=== PATIENT | female | born 1960 | race American Indian/Alaskan Native ===

== ENCOUNTER 2016-10-07 20:57 | Emergency (ER) | payer MEDICAID ==
--- NOTE | 2016-10-07 22:24 | XRay Report ---
FINAL REPORT EXAM: XR SHOULDER 2 RT HISTORY: shoulder Pain TECHNIQUE: Right shoulder three views 4 images PRIORS: None. FINDINGS: Visualized portion of the right lung appears clear. Bone mineralization appears within normal limits. No acute fracture or subluxation is identified. No gross abnormality is seen in the visualized soft tissues. IMPRESSION: 1. No acute osseous abnormality is identified.
[2016-10-07] MEDS ORDERED: NORCO 5/325 PO ONE (22:59)
[2016-10-07] MEDS ORDERED: FLEXERIL PO ONE (22:59)
--- NOTE | 2016-10-07 23:00 | Emergency Department Report ---
Upper Extremity - HPI Chief Complaint: Extremity Injury, Upper Stated Complaint: SHOULDER/ARM PAIN Time Seen by Provider: 10/07/16 22:40 Upper Extremity: Right Shoulder (Pain x 1 day) Occurred When: 1 Day Mechanism: Other (Lifting heavy object) Severity: mild (4/10) Symptoms: Yes Pain with Movement (Rt shoulder), Yes Limited Range of Movement ( per patient), No Deformity, No Numbness, No Weakness, No Swelling, No Bruising/ Ecchymosis, No Laceration or Abrasion Other History: Patient here complaining of pain to left shoulder after lifting heavt objects yesterday. Pain 4/10 and aching. Denies any other symptoms. Patient with H/O RA and follows by PCP. Denies trauma. ED Review of Systems ROS: Stated complaint: SHOULDER/ARM PAIN Other details as noted in HPI Comment: All other systems reviewed and negative Constitutional: denies: chills, fever Eyes: denies: eye pain, vision change ENT: denies: ear pain, throat pain, congestion Respiratory: no symptoms reported Cardiovascular: denies: chest pain, palpitations, edema, syncope Gastrointestinal: denies: abdominal pain, nausea Genitourinary: as per HPI Musculoskeletal: arthralgia. denies: back pain, joint swelling, myalgia Skin: denies: rash Neurological: denies: headache, weakness, numbness, paresthesias, confusion ED Past Medical Hx - Past Medical History Previous Medical History?: Yes Hx Hypertension: Yes - Surgical History Past Surgical History?: Yes Additional Surgical History: tonsillectomy - Family History Family history: hypertension - Social History Smoking Status: Current Every Day Smoker Substance Use Type: None - Medications Home Medications: Home Medications Medication Instructions Recorded Confirmed Last Taken Type Cyclobenzaprine [Flexeril] 10 mg PO TID PRN #12 tablet 10/08/16 Unknown Rx Ibuprofen [Motrin] 600 mg PO Q8H PRN #12 tablet 10/08/16 Unknown Rx Upper Extremity Exam - Exam General: Vital signs noted. No distress. Alert and acting appropriately. This is a 56 yo female well nourished and well developed in no acute distress Head and Torso: No HEENT Abnormality (normal exam), No Neck Tenderness (no cspine tenderness, full rom, supple. No adenopathy), No Chest/Lungs Abnormality (CTAB , Normal work of breathing), No Abdominal Tenderness (Soft, NTTP. Normal BS) Shoulder Exam: Yes Normal Range of Motion in Shoulder, No Shoulder Tenderness, No Clavicle Tenderness, No Shoulder Deformity, No AC Joint Tenderness Arm Exam: No Arm/Humerus Tenderness, No Arm Deformity Elbow: Yes Normal Range of Motion in Elbow, No Elbow Tenderness, No Elbow Deformity Forearm: No Forearm Tenderness, No Forearm Deformity, No Pain with Pronation, No Pain with Supination Wrist: Yes Normal ROM in Wrist, No Wrist Tenderness, No Wrist Deformity, No Snuffbox Tenderness, No Pain with Axial Thumb Compression Hand: Yes Normal ROM in Digit(s), Yes Digit(s) Deformity (Bony deformity to mip and pip joints, chronic RA), No Hand Tenderness, No Hand Deformity, No Digit Tenderness, No Tendon Dysfunction CMS Exam: Yes Normal Distal Pulses, Yes Normal Capillary Refill, Yes Normal Distal Sensation, No Broken Skin ED Course Vital Signs 10/07/16 21:15 Temperature 99.7 F H Pulse Rate 102 H Respiratory 18 Rate Blood Pressure 147/86 [Right] O2 Sat by Pulse 100 Oximetry Vital Signs 10/07/16 10/07/16 21:15 23:00 Temperature 99.7 F H Pulse Rate 102 H 92 H Respiratory 18 Rate Blood Pressure 147/86 [Right] O2 Sat by Pulse 100 Oximetry Vital Signs 10/07/16 10/07/16 10/08/16 21:15 23:00 00:10 Temperature 99.7 F H 98.3 F Pulse Rate 102 H 92 H Respiratory 18 Rate Blood Pressure 147/86 [Right] O2 Sat by Pulse 100 Oximetry - Reevaluation(s) Reevaluation #1: 10/08/16 00:10 Patient given [place] 5/325 mg and flexeril 10 mg po in ed with relief of pain Reevaluation #2: 10/08/16 00:12 Neurovascular check s/p sling. Patient with good color, movement, sensation and temperature to extremities - Orthopedic Splinting/Casting Injury #1 Side: right Upper Extremity Injury Location: shoulder Upper Extremity Immobilizer: sling/shoulder immobilize ED Medical Decision Making - Radiology Data Radiology results: report reviewed XR rt shoulder revealed no bony abnormalities. No joint effusion or soft tissue swelling - Medical Decision Making ED Course: patient here for Rt shoulder pain after lifting heavy object x 1 day. Patient given [place] 5/325 mg and flexeril 10 mg po in ed with relief of pain.See procedure note for details. Patient discharged home with family with prescription for flexeril and motrin and to followup with Orthopedic doctor in 3 -5 days. Critical care attestation.: If time is entered above; I have spent that time in minutes in the direct care of this critically ill patient, excluding procedure time. ED Disposition Clinical Impression: Right shoulder pain Qualifiers: Chronicity: acute Qualified Code(s): M25.511 - Pain in right shoulder Shoulder injury Qualifiers: Encounter type: initial encounter Laterality: right Qualified Code(s): S49.91XA - Unspecified injury of right shoulder and upper arm, initial encounter Disposition: TO HOME OR SELFCARE Is pt being admited?: No Does the pt Need Aspirin: No Condition: Stable Instructions: Arthralgia (ED), RICE Therapy (ED) Additional Instructions: Rest ,Ice, elevate affected area for 72 hours Take medication as prescribed Avoid driving or operating heavy machinery while taking flexeril as this medication causes drowsiness Prescriptions: Cyclobenzaprine [Flexeril] 10 mg PO TID PRN #12 tablet PRN Reason: Muscle Spasm Ibuprofen [Motrin] 600 mg PO Q8H PRN #12 tablet PRN Reason: Pain Referrals: HUMBERTO ARANA MD [Staff Physician] - 3-5 Days Forms: Accompanied Note, Work/School Release Form(ED)
[2016-10-08 00:31] VITALS: BP 149/86
== END 2016-10-08 01:06 | disposition home or self-care (01) ==
LOC: ED 20:57
DX: S49.91XA Unspecified injury of right shoulder and upper arm, initial encounter (principal); I10 Essential (primary) hypertension; F17.200 Nicotine dependence, unspecified, uncomplicated; X50.0XXA Overexertion from strenuous movement or load, initial encounter; Y93.89 Activity, other specified; Y99.8 Other external cause status; Y92.89 Other specified places as the place of occurrence of the external cause

== ENCOUNTER 2017-02-06 13:09 | Emergency (ER) | payer MEDICAID ==
[2017-02-06 13:34] VITALS: BP 118/75
[2017-02-06] MEDS ORDERED: TESSALON PERLES PO ONE (15:33)
--- NOTE | 2017-02-06 15:38 | Emergency Department Report ---
- General Chief Complaint: Upper Respiratory Infection Stated Complaint: COLD/SORE THROAT/RUNNY NOSE Time Seen by Provider: 02/06/17 15:13 Source: patient Mode of arrival: Ambulatory Limitations: No Limitations - History of Present Illness Initial Comments: This is a 56-year-old female nontoxic, well nourished in appearance, no acute signs of distress presents to the ED with c/o of sore throat, rhinorrhea, nasal congestion, and cough 3 days. Patient states she was in contact with her which was diagnosed with a upper respiratory infection. Patient denies fever, chills, nausea, vomiting, chest pain, shortness of breath, hemoptysis, wheezing, difficulty breathing, drooling, hoarseness, stiff neck or headache. Patient denies productive cough. She denies any allergies. Past Medical history includes hypertension. MD Complaint: cough, sore throat, rhinorrhea, nasal congestion -: days(s) (3) Severity: mild Severity scale (0 -10): 8 Quality: aching Consistency: constant Improves With: nothing Worsens With: nothing Associated Symptoms: denies other symptoms, rhinorrhea, nasal congestion, sore throat, cough. denies: fever, chills, myalgias, diaphoresis, headache, stiff neck, chest pain, shortness of breath, abdominal pain, nausea, vomiting, diarrhea, dysuria, rash, right sweats, weight loss, epistaxis, hoarseness, ear pain Treatments Prior to Arrival: none - Related Data Previous Rx's Medication Instructions Recorded Last Taken Type Cyclobenzaprine [Flexeril] 10 mg PO TID PRN #12 tablet 10/08/16 Unknown Rx Ibuprofen [Motrin] 600 mg PO Q8H PRN #12 tablet 10/08/16 Unknown Rx Azithromycin [Zithromax Z-LISETH] 250 mg PO DAILY #6 tablet 02/06/17 Unknown Rx Benzonatate [Tessalon Perle] 100 mg PO DAILY #15 capsule 02/06/17 Unknown Rx Nystas/Diphen/Xyl Visc/Mylanta 15 ml MM Q8H 10 Days 02/06/17 Unknown Rx [Magic Mouthwash] Allergies Allergy/AdvReac Type Severity Reaction Status Date / Time No Known Allergies Allergy Verified 02/05/14 12:23 ED Review of Systems ROS: Stated complaint: COLD/SORE THROAT/RUNNY NOSE Other details as noted in HPI Constitutional: denies: chills, fever Eyes: denies: eye pain, eye discharge, vision change ENT: throat pain. denies: ear pain Respiratory: cough. denies: shortness of breath, wheezing Cardiovascular: denies: chest pain, palpitations Endocrine: no symptoms reported Gastrointestinal: denies: abdominal pain, nausea, diarrhea Genitourinary: denies: urgency, dysuria, discharge Musculoskeletal: denies: back pain, joint swelling, arthralgia Skin: denies: rash, lesions Neurological: denies: headache, weakness, paresthesias Psychiatric: denies: anxiety, depression Hematological/Lymphatic: denies: easy bleeding, easy bruising ED Past Medical Hx - Past Medical History Hx Hypertension: Yes - Surgical History Additional Surgical History: tonsillectomy - Social History Smoking Status: Current Every Day Smoker Substance Use Type: None - Medications Home Medications: Home Medications Medication Instructions Recorded Confirmed Last Taken Type Cyclobenzaprine [Flexeril] 10 mg PO TID PRN #12 tablet 10/08/16 Unknown Rx Ibuprofen [Motrin] 600 mg PO Q8H PRN #12 tablet 10/08/16 Unknown Rx Azithromycin [Zithromax Z-LISETH] 250 mg PO DAILY #6 tablet 02/06/17 Unknown Rx Benzonatate [Tessalon Perle] 100 mg PO DAILY #15 capsule 02/06/17 Unknown Rx Nystas/Diphen/Xyl Visc/Mylanta 15 ml MM Q8H 10 Days 02/06/17 Unknown Rx [Magic Mouthwash] ED Physical Exam - General Limitations: No Limitations General appearance: alert, in no apparent distress - Head Head exam: Present: atraumatic, normocephalic, normal inspection - Eye Eye exam: Present: normal appearance, PERRL, EOMI. Absent: scleral icterus, conjunctival injection, nystagmus, periorbital swelling, periorbital tenderness Pupils: Present: normal accommodation - ENT ENT exam: Present: mucous membranes moist, TM's normal bilaterally, normal external ear exam - Expanded ENT Exam Expanded Ear exam: Present: normal external inspection Mouth exam: Present: normal external inspection, tongue normal. Absent: drooling, trismus, muffled voice, tongue elevation, laceration Teeth exam: Present: normal inspection Throat exam: Positive: tonsillar erythema, other (Uvula midline. No abscess or swelling ntoed. ). Negative: tonsillomegaly, tonsillar exudate, R peritonsillar mass, L peritonsillar mass - Neck Neck exam: Present: normal inspection, full ROM. Absent: tenderness, meningismus, lymphadenopathy, thyromegaly - Respiratory Respiratory exam: Present: normal lung sounds bilaterally. Absent: respiratory distress, wheezes, rales, rhonchi, stridor, chest wall tenderness, accessory muscle use, decreased breath sounds, prolonged expiratory - Cardiovascular Cardiovascular Exam: Present: regular rate, normal rhythm, normal heart sounds. Absent: irregular rhythm, systolic murmur, diastolic murmur, rubs, gallop - GI/Abdominal GI/Abdominal exam: Present: soft, normal bowel sounds. Absent: distended, tenderness, guarding, rebound, rigid, diminished bowel sounds - Rectal Rectal exam: Present: deferred - Extremities Exam Extremities exam: Present: normal inspection, full ROM, normal capillary refill. Absent: tenderness, pedal edema, joint swelling, calf tenderness - Back Exam Back exam: Present: normal inspection, full ROM. Absent: tenderness, CVA tenderness (R), CVA tenderness (L), muscle spasm, paraspinal tenderness, vertebral tenderness, rash noted - Neurological Exam Neurological exam: Present: alert, oriented X3, CN II-XII intact, normal gait, reflexes normal - Psychiatric Psychiatric exam: Present: normal affect, normal mood - Skin Skin exam: Present: warm, dry, intact, normal color. Absent: rash ED Course Vital Signs 02/06/17 02/06/17 13:30 15:35 Temperature 99.4 F 98.7 F Pulse Rate 111 H 91 H Respiratory 18 20 Rate Blood Pressure 118/75 O2 Sat by Pulse 98 100 Oximetry - Reevaluation(s) Reevaluation #1: 02/06/17 15:47 Patient is speaking in full sentences with no signs of distress noted. ED Medical Decision Making - Medical Decision Making This 56-year-old female that presents with upper respiratory infection. Patient was examined by me and patient is stable. Patient received lidocaine viscous and Tessalon Perles which patient states symptoms symptoms as improved and resolving of cough and sore throat. Patient was treated with Z-Liseth and Tessalon Perles and Magic mouthwash. Follow-up with a primary care doctor in 3- 5 days or if symptoms worsen and continue return to emergency room as soon as possible. At time time of discharge, the patient does not seem toxic or ill in appearance. No acute signs of distress noted. Patient agrees to discharge treatment plan of care. No further questions noted by the patient. Critical care attestation.: If time is entered above; I have spent that time in minutes in the direct care of this critically ill patient, excluding procedure time. ED Disposition Clinical Impression: Cough, Sore throat Upper respiratory infection Qualifiers: URI type: unspecified URI Qualified Code(s): J06.9 - Acute upper respiratory infection, unspecified Disposition: - TO HOME OR SELFCARE Is pt being admited?: No Does the pt Need Aspirin: No Condition: Stable Instructions: Benzonatate (By mouth), Azithromycin (By mouth), Upper Respiratory Infection (ED) Additional Instructions: Follow-up with a primary care doctor in 3-5 days or if symptoms worsen and continue return to emergency room as soon as possible. Prescriptions: Azithromycin [Zithromax Z-LISETH] 250 mg PO DAILY #6 tablet Benzonatate [Tessalon Perle] 100 mg PO DAILY #15 capsule Nystas/Diphen/Xyl Visc/Mylanta [Magic Mouthwash] 15 ml MM Q8H 10 Days Referrals: PRIMARY CAREMD [Primary Care Provider] - 3-5 Days DORIS FLORES MD [Staff Physician] - 3-5 Days [facility] [Outside] - 3-5 Days [facility] [Outside] - 3-5 Days Forms: Work/School Release Form(ED)
[2017-02-06] MEDS ORDERED: LIDOCAINE VISCOUS 2% MM NR (15:45)
[2017-02-06] MEDS ORDERED: LIDOCAINE VISCOUS 2% PO ONE (15:50)
== END 2017-02-06 16:30 | disposition home or self-care (01) ==
LOC: ED 13:09
DX: J06.9 Acute upper respiratory infection, unspecified (principal); J02.9 Acute pharyngitis, unspecified; I10 Essential (primary) hypertension; F17.200 Nicotine dependence, unspecified, uncomplicated
CPT/HCPCS: 99282